=== PATIENT | female | born 2005 | race American Indian/Alaskan Native ===

== ENCOUNTER 2025-02-02 13:44 | Emergency (ER) | payer OTHER ==
[2025-02-02] MEDS: Ondansetron 4 MG/2 ML SDV IVPUSH ONE (14:11)
[2025-02-02 14:15] LABS: BASOPHILS PERCENT AUTO 0.3 % (0.0-1.0); EOSINOPHILS PERCENT AUTO 1.0 % (1.0-3.0); LYMPHOCYTES PERCENT AUTO 24.5 % (20.5-50.1); MONOCYTES PERCENT AUTO 6.3 % (2-8); NEUTROPHILS PERCENT AUTO 67.9 % (42.2-75.2); PLATELET COUNT,PLT 326 10^3/uL (150-450); RED BLOOD CELL COUNT 4.16 10^6/uL (4.2-5.4); WHITE BLOOD CELL COUNT,WBC 7.3 10^3/uL (5.0-10.0)
[2025-02-02 14:27] LABS: A/G RATIO 1.0; ALANINE AMINOTRANSFERASE,ALT 54.0 U/L (14-59); ASPARTATE AMNIOTRANSFERASE,AST 34.0 U/L (15-37); BILIRUBIN TOTAL 1.3 mg/dL (0.2-1.0); BLOOD UREA NITROGEN,BUN 10.0 mg/dL (7-18); CARBON DIOXIDE,CO2 27.0 mmol/L (21-32); CHLORIDE,CL 100.0 mmol/L (98-107); CREATININE 0.68 mg/dL (0.55-1.02); EST CRCL DRUG DOSING (CG) 102.53 mL/min; GLUCOSE RANDOM 97.0 mg/dL (70-99); POTASSIUM,K 3.4 mmol/L (3.5-5.1); PROTEIN TOTAL,TP 7.5 g/dL (6.4-8.2); SODIUM,NA 136.0 mmol/L (136-145)
[2025-02-02 14:28] LABS: ESTIMATED GFR 129.0 mL/min (>=60)
[2025-02-02 15:03] LABS: APPEARANCE,URINE CLEAR (CLEAR); GLUCOSE,URINE NEGATIVE (NEGATIVE); OCCULT BLOOD,URINE NEGATIVE (NEGATIVE)
[2025-02-02 15:13] LABS: EPITHELIAL CELLS,URINE FEW /HPF (NOT SEEN)
== END 2025-02-02 16:04 | disposition home or self-care (01) ==
LOC: DL.ED 13:44
DX: R11.2 Nausea with vomiting, unspecified (principal)
CPT/HCPCS: 36415; 80053; 81001; 81025; 85025; 96361; 96374; 99284; J2405; J7030